=== PATIENT | female | born 1970 | race Caucasian/White ===

== ENCOUNTER 2021-01-28 19:27 | Emergency (ER) | payer OTHER ==
[2021-01-28] MEDS ORDERED: Ketorolac 30 MG/ML SDV IVPUSH ONE (19:48)
[2021-01-28] MEDS ORDERED: Sodium Chloride 0.9% 1,000 ML IV ONE (19:48)
--- NOTE | 2021-01-28 20:04 | EDM.PDOC ---
ED HPI GENERAL MEDICAL PROBLEM - General Chief Complaint: Cardiovascular Problem Stated Complaint: chest pain, right sided weakness Time Seen by Provider: 01/28/21 19:38 Source of Information: Reports: Patient, Family (sister) History Limitations: Reports: No Limitations - History of Present Illness INITIAL COMMENTS - FREE TEXT/NARRATIVE: Patient presents with stabbing right upper chest/bhtdtdnc-crxcwks-of-back pain for last 2.5 hours. She had it around noon that lasted for 30 minutes then went away but came back around 1700 and has stayed constant 8/10 since then. She al so had diaphoresis and nausea. She had a similar pain 5 years ago that ended up being pancreatitis and gallbladder. She was hospitalized for pancreatitis, followed by cholecystectomy and hasn't had any return of pain again until today. The pain was never in her abdomen either time. She denies any history of heart problems or disease. Chest pain Pain Score (Numeric/FACES): 8 - Related Data Allergies Allergy/AdvReac Type Severity Reaction Status Date / Time bupropion [From Zyban] Allergy Rash Verified 01/28/21 19:57 clarithromycin [From Biaxin] Allergy Rash Verified 01/28/21 19:57 Home Meds: Home Meds ARIPiprazole [Abilify] 30 mg PO DAILY 01/28/21 [History] Acetaminophen [Tylenol] 325 mg PO Q4HR PRN 01/28/21 [History] Acetaminophen/HYDROcodone [[place] 325-5 MG] 1 - 2 tab PO Q6H PRN 01/28/21 [History] Cetirizine [ZyrTEC] 10 mg PO DAILY 01/28/21 [History] Clobetasol [Clobetasol Propionate 0.05%] 30 gm TP ASDIRECTED 01/28/21 [History] Ergocalciferol (Vitamin D2) [Vitamin D2] 50,000 unit PO ASDIRECTED 01/28/21 [History] LORazepam [Ativan] 0.5 mg PO ASDIRECTED PRN 01/28/21 [History] Omeprazole 20 mg PO DAILY 01/28/21 [History] SUMAtriptan succinate [Imitrex] 6 mg SQ BID PRN 01/28/21 [History] Venlafaxine [Effexor XR] 75 mg PO DAILY 01/28/21 [History] atenoloL [Atenolol] 50 mg PO DAILY 01/28/21 [History] levonorgestreL [Mirena] 1 each VAG ASDIRECTED 01/28/21 [History] methylPREDNISolone [Medrol] 4 mg PO ASDIRECTED 01/28/21 [History] ondansetron HCL [Zofran] 4 - 8 mg PO ASDIRECTED PRN 01/28/21 [History] ED ROS GENERAL - Review of Systems Review Of Systems: See Below Constitutional: Denies: Fever, Malaise, Weakness HEENT: Reports: No Symptoms Respiratory: Denies: Shortness of Breath, Cough Cardiovascular: Reports: Chest Pain. Denies: Syncope GI/Abdominal: Denies: Abdominal Pain, Constipation, Diarrhea, Vomiting : Denies: Dysuria, Flank Pain Musculoskeletal: Reports: Shoulder Pain (right), Back Pain (right shoulder blade). Denies: Neck Pain, Arm Pain Skin: Denies: Cyanosis, Jaundice, Mottled, Pallor, Diaphoresis Neurological: Denies: Confusion, Dizziness, Headache, Seizure, Syncope, Trouble Speaking, Difficulty Walking Psychiatric: Denies: Agitation, Anxiety, Confusion ED EXAM, GENERAL - Physical Exam Exam: See Below Exam Limited By: No Limitations General Appearance: Alert, WD/WN, No Apparent Distress Eye Exam: Bilateral Eye: EOMI, Normal Inspection, PERRL Ears: Normal External Exam, Hearing Grossly Normal Nose: Normal Inspection, No Blood Throat/Mouth: Normal Inspection, Normal Lips, Normal Voice, No Airway Compromise Head: Atraumatic, Normocephalic Neck: Normal Inspection, Full Range of Motion Respiratory/Chest: No Respiratory Distress, Lungs Clear, Normal Breath Sounds, Chest Non-Tender (to palpation) Cardiovascular: Regular Rate, Rhythm, No Murmur GI/Abdominal: Soft, Non-Tender, No Organomegaly, No Distention, No Abnormal Bruit Back Exam: Normal Inspection, Full Range of Motion. No: CVA Tenderness (L), CVA Tenderness (R) Extremities: Normal Inspection, Normal Range of Motion Neurological: Alert, Oriented, Normal Cognition, No Motor/Sensory Deficits Psychiatric: Normal Affect, Normal Mood Skin Exam: Warm, Dry, Intact, Normal Color, No Rash Course - Vital Signs Last Recorded V/S: Last Vital Signs Temp 98.7 F 01/28/21 20:23 Pulse 77 01/28/21 20:23 Resp 18 07/03/21 20:23 BP 154/95 H 01/28/21 20:49 Pulse Ox 95 01/28/21 20:23 - Orders/Labs/Meds Orders: Active Orders 24 hr Category Date Time Status Heparin Sodium/D5W 250 ml Med 01/28/21 21:00 Ordered IV TITRATE Medication Orders Heparin Sodium/Dextrose () 250 mls @ 16.329 mls/hr IV TITRATE AMBROSE; Protocol Labs: Laboratory Tests 01/28/21 01/28/21 Range/Units 19:45 19:45 WBC 9.33 (5.00-10.00) 10^3/uL RBC 4.65 (3.80-5.50) 10^6/uL Hgb 14.4 (12.0-16.0) g/dL Hct 43.9 (37.0-47.0) % MCV 94.4 H (82.0-92.0) fL MCH 31.0 (27.0-31.0) pg MCHC 32.8 (32.0-36.0) g/dL RDW 14.0 (11.5-14.5) % Plt Count 232 (150-400) 10^3/uL MPV 10.9 H (7.4-10.4) fL Immature Gran % (Auto) 0.0 (0.0-5.0) % Neut % (Auto) 84.9 H (50.0-70.0) % Lymph % (Auto) 10.0 L (20.0-40.0) % [place] % (Auto) 4.4 (2.0-8.0) % Eos % (Auto) 0.4 L (1.0-3.0) % Baso % (Auto) 0.3 (0.0-1.0) % Neut # (Auto) 7.92 H (2.50-7.00) 10^3/uL Lymph # (Auto) 0.93 L (1.00-4.00) 10^3/uL [place] # (Auto) 0.41 (0.10-0.80) 10^3/uL Eos # (Auto) 0.04 L (0.10-0.30) 10^3/uL Baso # (Auto) 0.03 (0.00-0.10) 10^3/uL Immature Gran # (Auto) 0.00 (0.00-0.50) 10^3/uL Sodium 140 (136-145) mmol/L Potassium 3.3 L (3.5-5.1) mmol/L Chloride 101 (98-107) mmol/L Carbon Dioxide 25.5 (21.0-32.0) mmol/L Anion Gap 16.8 H (5-15) mmol/L BUN 7 (7-18) mg/dL Creatinine 0.60 (0.51-1.17) mg/dL Est Cr Clr Drug Dosing TNP Estimated GFR (MDRD) > 60 mL/min Glucose 99 (70-140) mg/dL Calcium 9.1 (8.7-10.3) mg/dL Total Bilirubin 0.6 (0.2-1.0) mg/dL AST 69 H (15-37) U/L ALT 70 H (14-63) U/L Alkaline Phosphatase 183 H (46-116) U/L Troponin I High Sens 5641.900 H* (0-51.000) pg/mL Total Protein 7.9 (6.4-8.2) g/dL Albumin 3.94 (3.40-5.00) g/dL Lipase 65 L (73-393) U/L Meds: Medications Generic Name Dose Route Start Last Admin Trade Name Freq PRN Reason Stop Dose Admin Heparin Sodium/Dextrose 250 mls @ 16.329 mls/hr 01/28/21 21:00 IV TITRATE AMBROSE Protocol 12 UNITS/KG/HR Discontinued Medications Generic Name Dose Route Start Last Admin Trade Name Kymber[place] PRN Reason Stop Dose Admin Aspirin 324 mg 01/28/21 20:29 01/28/21 20:40 Aspirin 81 Mg Tab.Chew PO 01/28/21 20:30 324 mg ONETIME ONE Administration Heparin Sodium (Porcine) 5,000 units 01/28/21 20:49 Heparin Sodium 5,000 Units/Ml Vial IVPUSH 01/28/21 20:50 ONETIME ONE Sodium Chloride 1,000 mls @ 999 mls/hr 01/28/21 19:48 01/28/21 19:54 Normal Saline IV 01/28/21 20:48 999 mls/hr .BOLUS ONE Administration Ketorolac Tromethamine 30 mg 01/28/21 19:48 01/28/21 19:53 Ketorolac 30 Mg/Ml Sdv IVPUSH 01/28/21 19:49 30 mg ONETIME ONE Administration Nitroglycerin 0.4 mg 01/28/21 20:30 01/28/21 20:49 Nitroglycerin 0.4 Mg Tab.Sl SL 0.4 mg Q5M PRN Administration Chest Pain Nitroglycerin 1 gm 01/28/21 20:53 Nitroglycerin 2% Oint 1 Gm Ud Packet TOP 01/28/21 20:54 ONETIME ONE - Re-Assessments/Exams Free Text/Narrative Re-Assessment/Exam: 01/28/21 20:16 EKG shows NSR with HR 76. 01/28/21 20:57 Troponin is 5641. I discussed findings and recommendations with patient and gave aspirin and nitro sl x 3. She chooses [facility] in [place] for transfer. I discussed case with Dr. Mercado, hospitalist who accepts for immediate transfer and wants nitropaste, heparin bolus/drip. These are starting and ambulance has been called. Departure - Departure Time of Disposition: 21:03 Disposition: DC/Tfer to Acute Hospital 02 Reason for Transfer *Q: Other (ICU with possibility of PCI) Condition: Good Clinical Impression: NSTEMI (non-ST elevated myocardial infarction), Chest pain due to myocardial ischemia, Elevated troponin Forms: ED Department Discharge Sepsis Event Note (ED) - Focused Exam Vital Signs: Vital Signs Temp Pulse Resp BP BP Pulse Ox 01/28/21 20:49 154/95 H 01/28/21 20:42 173/106 H 01/28/21 20:36 160/97 H 01/28/21 20:23 98.7 F 77 18 202/103 H 95 - My Orders Last 24 Hours: My Active Orders 01/28/21 21:00 Heparin Sodium/D5W 250 ml IV TITRATE - Assessment/Plan Last 24 Hours: My Active Orders 01/28/21 21:00 Heparin Sodium/D5W 250 ml IV TITRATE
[2021-01-28 20:25] LABS: ANION GAP 16.8 mmol/L (5-15); CHLORIDE,CL 101 mmol/L (98-107); SODIUM,NA 140 mmol/L (136-145)
[2021-01-28] MEDS ORDERED: Aspirin 81 MG Tab.Chew PO ONE (20:29)
[2021-01-28] MEDS: Nitroglycerin 0.4 MG Tab.SL SL PRN ×3 (20:36→20:49)
[2021-01-28] MEDS ORDERED: Heparin Sodium 5,000 Units/ML Vial IVPUSH ONE (20:49)
[2021-01-28] MEDS ORDERED: Nitroglycerin 2% Oint 1 GM UD Packet TOP ONE (20:53)
[2021-01-28] MEDS ORDERED: Heparin Sodium/D5W 250 ML IV SCH (21:00)
== END 2021-01-28 21:20 ==
LOC: MERGE 19:27 → KA.ED 19:27
DX: I21.4 Non-ST elevation (NSTEMI) myocardial infarction (principal); R79.89 Other specified abnormal findings of blood chemistry; Z88.1 Allergy status to other antibiotic agents; Z88.8 Allergy status to other drugs, medicaments and biological substances; Z79.899 Other long term (current) drug therapy
CPT/HCPCS: 36415; 80053; 83690; 84484; 85025; 93005; 96365; 96375; 96376; 99284; 99285-25; A9270-GY; J1644; J1885; J7030